=== PATIENT | male | born 1955 | race African-American/Black ===

== ENCOUNTER 2018-02-09 04:39 | Emergency (ER) | payer OTHER ==
[2018-02-09] MEDS ORDERED: acetaZOLAMIDE Sodium 500 mg Vial ONE (05:17)
[2018-02-09] MEDS ORDERED: Sterile Water 0 ML ONE (05:25)
[2018-02-09] MEDS ORDERED: Fentanyl 100 MCG/2 ML VIAL ONE (05:25)
[2018-02-09] MEDS ORDERED: Ondansetron PF 4 MG/2 ML Vial ONE (05:25)
[2018-02-09] MEDS ORDERED: Sterile Water 10 ML ONE (05:27)
[2018-02-09] MEDS ORDERED: Timolol 0.5% Ophth Soln 5 ml Bottle L EYE SCH (05:30)
[2018-02-09] MEDS ORDERED: manNITOL 20% 500 ML ONE (05:52)
[2018-02-09] MEDS ORDERED: Mannitol 12.5 GM/50 ML ONE (05:54)
== END 2018-02-09 07:10 | disposition home or self-care (01) ==
LOC: NAV ERS 04:39
DX: H40.212 Acute angle-closure glaucoma, left eye (principal); F17.210 Nicotine dependence, cigarettes, uncomplicated; I10 Essential (primary) hypertension; E78.5 Hyperlipidemia, unspecified; E03.9 Hypothyroidism, unspecified; Z79.899 Other long term (current) drug therapy; Z79.82 Long term (current) use of aspirin
CPT/HCPCS: 96365; 96375; A4216; J1120; J2150; J2405; J3010; J7799